=== PATIENT | female | born 1995 | race African-American/Black ===

== ENCOUNTER 2022-11-14 14:40 | Day surgery (SDC) | payer OTHER ==
[2022-11-14 15:14] VITALS: BMI 36.1
[2022-11-14] MEDS ORDERED: hydrALAZINE 20 MG/ML VIAL SLOW IVP PRN (15:50)
[2022-11-14 17:38] LABS: Bilirubin Neg (Negative); Blood, Urine Negative (Negative); Clarity Clear (Clear); Glucose, Urine (Dipstick) Normal (Negative); Ketone, Urine Negative (Negative); Leukocyte 100 (Negative); Nitrite Negative (Negative); Protein, Urine (Dipstick) Negative (Neg-Trace); Specific Gravity, Urine 1.015 (1.005-1.030); Urobilinogen Normal mg/dL (Less than 2)
[2022-11-14 18:11] LABS: CAUTI Indications for Culture Pregnancy; RBC/HPF None Seen HPF (0-3)
[2022-11-14 18:12] LABS: Bacteria/HPF 2+ HPF (None Seen); Squamous Epithelial 0-3 HPF (0-3); Urine Culture Reflex Yes Yes
== END 2022-11-14 18:07 | disposition home or self-care (01) ==
LOC: CSHLAB 14:40 → CSHLD/OP 18:07
PROVIDERS: ATTEND Obstetrics & Gynecology
DX: O47.03 False labor before 37 completed weeks of gestation, third trimester (principal); O99.213 Obesity complicating pregnancy, third trimester; E66.9 Obesity, unspecified; Z79.899 Other long term (current) drug therapy; Z3A.34 34 weeks gestation of pregnancy
CPT/HCPCS: 81001; 87086

== ENCOUNTER 2022-12-15 07:30 | Inpatient (IN) | payer OTHER ==
[2022-12-14 11:50] LABS: Hematocrit 35.8 % (34.9-44.5); Hemoglobin 11.5 g/dL (12.0-15.5); Platelet Count 261 10x3/uL (150-450)
[2022-12-14 12:32] LABS: Syphilis Antibody Nonreactive (Nonreactive); Syphilis Antibody Index 0.07 S/CO (<1.00 Non-Reactive)
[2022-12-14 12:33] LABS: HBSAg Index 0.17 S/CO (0-0.99); Hep B Surf Ag Non-Reactive S/CO (NonReactive)
[2022-12-15 09:51] VITALS: BMI 39.6
[2022-12-15] MEDS ORDERED: Promethazine HCl 25 MG/ML VIAL IM PRN ×2 (10:06→13:50)
[2022-12-15] MEDS ORDERED: Ondansetron PF 4 MG/2 ML Vial IVP PRN ×3 (10:06→13:50)
[2022-12-15] MEDS ORDERED: Famotidine/PF 20 mg/2ml Vial SLOW IVP PRN (10:06)
[2022-12-15] MEDS ORDERED: Bicitra 30 ML UDCUP PO PRN (10:06)
[2022-12-15] MEDS ORDERED: hydrALAZINE 20 MG/ML VIAL SLOW IVP PRN ×2 (10:06→15:38)
[2022-12-15] MEDS ORDERED: CEFAZOLIN 2 GM in Sodium Chloride 0.9% 100 ML IVPB SCH (10:15)
[2022-12-15] MEDS ORDERED: Oxytocin 30 units/NS 500 ML 500 ML IV SCH (10:15)
[2022-12-15] MEDS ORDERED: Lactated Ringer's 1,000 ML IV SCH (10:15)
[2022-12-15] MEDS ORDERED: Ketorolac Tromethamine 30 MG/ML VIAL ONE (11:48)
[2022-12-15] MEDS ORDERED: Phenylephrine 40 MG/NS 250 ML 250 ML ONE (11:48)
[2022-12-15] MEDS ORDERED: Morphine PF 10 MG/10 ML VIAL ONE (11:48)
[2022-12-15] MEDS ORDERED: ePHEDrine Sulfate 50 MG/10 ML VIAL ONE (11:48)
[2022-12-15] MEDS ORDERED: Ondansetron PF 4 MG/2 ML Vial ONE (11:48)
[2022-12-15] MEDS ORDERED: Oxytocin 10 UNITS/ML VIAL ONE ×2 (11:48→13:02)
[2022-12-15] MEDS ORDERED: fentaNYL 50 mcg/mL 1 mL Vial ONE (11:48)
[2022-12-15] MEDS ORDERED: Erythromycin Base 0.5% Oint 1 GM TUBE ONE (11:59)
[2022-12-15] MEDS ORDERED: Phytonadione Neonatal 1 MG/0.5 ML AMP ONE (12:00)
[2022-12-15 12:22] LABS: HBSAg Index 0.17 S/CO (0-0.99); Hep B Surf Ag - L&D Non-Reactive S/CO (NonReactive)
[2022-12-15 12:24] LABS: Syphilis Antibody Nonreactive (Nonreactive); Syphilis Antibody Index 0.06 S/CO (<1.00 Non-Reactive)
[2022-12-15] MEDS ORDERED: Promethazine HCl 25 MG/ML VIAL ONE (12:51)
[2022-12-15] MEDS ORDERED: Promethazine HCl 25 MG SUPP PR PRN (13:50)
[2022-12-15] MEDS ORDERED: Meperidine HCl/PF 25 MG/ML VIAL SLOW IVP PRN (13:50)
[2022-12-15] MEDS ORDERED: Moisturizing Cream (Eucerin) 113 GM JAR TOP PRN (13:50)
[2022-12-15] MEDS ORDERED: fentaNYL 50 mcg/mL 1 mL Vial SLOW IVP PRN (13:50)
[2022-12-15] MEDS ORDERED: Naloxone HCl 0.4 mg/ml Vial IVP PRN ×2 (13:50)
[2022-12-15] MEDS ORDERED: HYDROmorphone 0.5 MG/0.5 ML SYRINGE SLOW IVP PRN (13:50)
[2022-12-15] MEDS ORDERED: Naloxone HCl 0.4 mg/ml Vial IV PRN (13:50)
[2022-12-15] MEDS ORDERED: diphenhydrAMINE 50 MG/ML VIAL IVP PRN (13:50)
[2022-12-15] MEDS ORDERED: Ketorolac Tromethamine 30 MG/ML VIAL IVP SCH (14:00)
[2022-12-15] MEDS ORDERED: Communication Order-Pharmacy FS SCH (14:00)
[2022-12-15] MEDS ORDERED: Simethicone Chewable 80 MG TAB PO PRN (15:38)
[2022-12-15] MEDS ORDERED: Lanolin Ointment 7 GM TUBE TOP PRN (15:38)
[2022-12-15] MEDS ORDERED: Boostrix 0.5 ML (Tdap) VIAL (>/=7 yrs of age) IM ONE (15:38)
[2022-12-15] MEDS ORDERED: HYDROcodone/Acetaminophen 5/325 mg Tablet PO PRN (15:38)
[2022-12-15] MEDS ORDERED: Bisacodyl 10 MG SUPP PR PRN (15:38)
[2022-12-15] MEDS: Docusate 100 MG CAP PO SCH (21:39)
[2022-12-15] MEDS: Ketorolac Tromethamine 30 MG/ML VIAL IVP PRN (21:39)
[2022-12-16 04:44] LABS: Hematocrit 31.7 % (34.9-44.5); Hemoglobin 10.4 g/dL (12.0-15.5); Mean Corpuscular HGB CONC 32.8 g/dL (32.0-36.0); Mean Corpuscular Hemoglobin 29.8 pg (27.0-33.0); Mean Corpuscular Volume 90.8 fl (81.6-98.3); Mean Platelet Volume 9.8 fl (7.4-10.4); Platelet Count 189 10x3/uL (150-450); RBC Distribution Width 13.8 % (11.5-14.5); Red Blood Cell (RBC) Count 3.49 10x6/uL (3.90-5.03); White Blood Cell (WBC) Count 6.2 10x3/uL (3.5-10.5)
[2022-12-16] MEDS: Ketorolac Tromethamine 30 MG/ML VIAL IVP PRN (05:10)
[2022-12-16] MEDS: Ibuprofen 800 MG TAB PO SCH ×3 (07:50→21:51)
[2022-12-16] MEDS ORDERED: Ferrous Sulfate 325 MG TAB PO SCH (09:00)
[2022-12-16] MEDS: Prenatal Vitamin 1 TAB PO SCH (10:30)
[2022-12-16] MEDS: Docusate 100 MG CAP PO SCH ×2 (10:30→21:51)
[2022-12-16] MEDS: HYDROcodone/Acetaminophen 5/325 mg Tablet PO PRN ×2 (10:34→13:45)
[2022-12-17] MEDS: Ibuprofen 800 MG TAB PO SCH (05:24)
[2022-12-17 07:48] VITALS: BP 113/70; TEMP 97.3
[2022-12-17] MEDS: HYDROcodone/Acetaminophen 5/325 mg Tablet PO PRN (08:05)
[2022-12-17] MEDS: Docusate 100 MG CAP PO SCH (08:05)
[2022-12-17] MEDS: Prenatal Vitamin 1 TAB PO SCH (08:05)
== END 2022-12-17 13:30 | disposition home or self-care (01) | DRG 788 ==
LOC: CSHLD 08:04 → CSHPED 15:25
PROVIDERS: ADMIT Family Medicine; ATTEND Family Medicine
PROC: 10D00Z1 Extraction of Products of Conception, Low, Open Approach (ICD-10-PCS; principal; 2022-12-15)
PROC: 3E0P05Z Introduction of Adhesion Barrier into Female Reproductive, Open Approach (ICD-10-PCS; 2022-12-15)
DX: O34.211 Maternal care for low transverse scar from previous cesarean delivery (principal); Z3A.39 39 weeks gestation of pregnancy; Z37.0 Single live birth; O99.824 Streptococcus B carrier state complicating childbirth; E66.9 Obesity, unspecified; O99.214 Obesity complicating childbirth; N73.6 Female pelvic peritoneal adhesions (postinfective); O99.892 Other specified diseases and conditions complicating childbirth; O73.0 Retained placenta without hemorrhage; N85.5 Inversion of uterus; D50.0 Iron deficiency anemia secondary to blood loss (chronic); O99.03 Anemia complicating the puerperium
CPT/HCPCS: 36415; 51702; 85014; 85018; 85027; 85049; 86780; 86850; 86900; 86901; 87340; J1650; J1885; J2274; J2405; J2550; J2590; J3010; J7120